=== PATIENT | male | born 1950 | race Caucasian/White ===

== ENCOUNTER 2017-06-20 06:55 | Day surgery (SDC) | payer MEDICARE ==
[2017-06-19 08:51] VITALS: BMI 25.8
[2017-06-20] MEDS ORDERED: PROPOFOL 20 ML ONE ×3 (07:29)
[2017-06-20] MEDS ORDERED: LIDOCAINE HCL 2% (20ML MULTI-DOSE VIAL) NR ONE (07:39)
[2017-06-20] MEDS ORDERED: SUCCINYLCHOLINE CHLORIDE 200 MG/10 ML VIAL ONE (07:39)
[2017-06-20 08:55] VITALS: TEMP 98.2
[2017-06-20 09:28] VITALS: BP 115/60; PULSE 68
--- NOTE | 2017-06-23 15:32 | PATH ---
Surgical Pathology Report Patient Name: ALPHONSO NICKERSON [facility]. Rec. #: [id number] /Age/Gender: 1950 (Age: 67) / M Account: [id number] Location: U-ENDOSCOPY Taken: 06/20/2017 Received: 06/20/2017 Reported: 06/23/2017 Physicians: Flaquito Laureano M.D. Specimen(s) Received A: BX 2ND PORTION DUODENAL & BULB B: BX ANTRUM C: BX GE JUNCTION D: RIGHT COLON POLYP E: RECTAL POLYP Clinical History Preoperative diagnosis: Adenoma surveillance, family history of gastric cancer Postoperative diagnosis: GERD, mild gastritis, right colon and rectal polyp, diverticulosis Final Diagnosis A. DUODENUM, SECOND PORTION AND BULB , BIOPSY: DUODENAL MUCOSA WITHOUT SIGNIFICANT PATHOLOGIC FINDINGS. B. STOMACH, ANTRUM, BIOPSY: GASTRIC ANTRAL MUCOSA WITH MILD CHRONIC GASTRITIS. IMMUNOHISTOCHEMICAL STAIN FOR H. PYLORI IS NEGATIVE. C. GASTROESOPHAGEAL (GE) JUNCTION, BIOPSY: SQUAMOUS MUCOSA WITH MILD REFLUX ESOPHAGITIS. NO COLUMNAR COMPONENT IDENTIFIED. D. COLON, RIGHT, POLYP, BIOPSY: TUBULAR ADENOMA. E. RECTUM, POLYP, BIOPSY: TUBULAR ADENOMA. Electronically Signed Didi Bennett M.D. Gross Description A. Received in formalin, labeled "biopsy second portion of duodenum and bulb" are 3 hewitt, irregular portions of soft tissue averaging 0.3 cm. in greatest dimension. The specimens are submitted in toto in one cassette. B. Received in formalin, labeled "biopsy antrum" are 4 hewitt, irregular portions of soft tissue ranging from 0.2-0.4 cm. in greatest dimension. The specimens are submitted in toto in one cassette. C. Received in formalin, labeled "biopsy GE junction" are 2 hewitt, irregular portions of soft tissue averaging 0.4 cm. in greatest dimension. The specimens are submitted in toto in one cassette. D. Received in formalin, labeled "biopsy right colon polyp" are 2 hewitt, irregular portions of soft tissue averaging 0.2 cm. in greatest dimension. The specimens are submitted in toto in one cassette. E. Received in formalin, labeled "rectal polyp" are 2 hewitt, irregular portions of soft tissue averaging 0.3 cm. in greatest dimension. The specimens are submitted in toto in one cassette. 06/20/2017 saudi06/20/2017
== END 2017-06-20 09:46 | disposition home or self-care (01) ==
LOC: JASU-ENDO 06:55
PROVIDERS: ATTEND Internal Medicine Gastroenterology
PROC: 0DBP8ZX Excision of Rectum, Via Natural or Artificial Opening Endoscopic, Diagnostic (ICD-10-PCS; 2017-06-20)
PROC: 0DB98ZX Excision of Duodenum, Via Natural or Artificial Opening Endoscopic, Diagnostic (ICD-10-PCS; 2017-06-20)
PROC: 0DB68ZX Excision of Stomach, Via Natural or Artificial Opening Endoscopic, Diagnostic (ICD-10-PCS; 2017-06-20)
PROC: 0DB38ZX Excision of Lower Esophagus, Via Natural or Artificial Opening Endoscopic, Diagnostic (ICD-10-PCS; 2017-06-20)
PROC: 0DB48ZX Excision of Esophagogastric Junction, Via Natural or Artificial Opening Endoscopic, Diagnostic (ICD-10-PCS; 2017-06-20)
PROC: 0DBK8ZX Excision of Ascending Colon, Via Natural or Artificial Opening Endoscopic, Diagnostic (ICD-10-PCS; principal; 2017-06-20 08:00)
DX: Z86.010 Personal history of colon polyps (principal); Z80.0 Family history of malignant neoplasm of digestive organs; D12.2 Benign neoplasm of ascending colon; K62.1 Rectal polyp; K57.30 Diverticulosis of large intestine without perforation or abscess without bleeding; K21.0 Gastro-esophageal reflux disease with esophagitis; K44.9 Diaphragmatic hernia without obstruction or gangrene; K25.9 Gastric ulcer, unspecified as acute or chronic, without hemorrhage or perforation
CPT/HCPCS: 88305-TC; 88342-TC

== ENCOUNTER 2019-03-04 07:32 | Day surgery (SDC) | payer OTHER, MEDICARE ==
[2019-03-03 11:30] VITALS: BMI 25.0
[2019-03-04] MEDS ORDERED: MIDAZOLAM HCL 2 MG/2 ML SINGLE DOSE VIAL ONE (08:30)
[2019-03-04] MEDS ORDERED: SUCCINYLCHOLINE CHLORIDE 200 MG/10 ML SYRINGE ONE (08:30)
[2019-03-04] MEDS ORDERED: PROPOFOL 20 ML ONE (08:30)
[2019-03-04] MEDS ORDERED: AMPICILLIN NA/SULBACTAM NA 1.5 GM VIAL ONE (09:14)
[2019-03-04] MEDS ORDERED: AMPICILLIN NA/SULBACTAM NA 1.5 GM VIAL IVPB ONE (09:14)
[2019-03-04] MEDS ORDERED: AMPICILLIN NA/SULBACTAM NA 1.5 GM/100 ML PRE-DOCKED IVPB ONE (09:15)
[2019-03-04] MEDS ORDERED: IOHEXOL 300 MG/ML INFUS..BTL IJ ONE (09:25)
[2019-03-04] MEDS ORDERED: DESFLURANE GAS 240 ML BOTTLE IH ONE (10:21)
[2019-03-04] MEDS ORDERED: oxyCODONE HCL 5 MG TABLET PO PRN (10:41)
--- NOTE | 2019-03-04 10:44 | OP ---
Operative Note - Note: Operative Date: 03/04/19 Pre-Operative Diagnosis: urethral stricture/bladder stone/RT ureteral stone Operation: cysto/dilation/laser litho/ureteroscopy/stent Post-Operative Diagnosis: Same as Pre-op Surgeon: Lorenzo Zimmerman Anesthesia: General Specimens Removed: stones Estimated Blood Loss (mls): 5 Drains & Tubes with Location: 7fr, 24cm stent Operative Report Dictated: Yes
[2019-03-04] MEDS ORDERED: ELECTROLYTE-148 SOLN 1,000 ML IV SCH (10:45)
[2019-03-04] MEDS ORDERED: ACETAMINOPHEN INJECTION 100 ML IVPB ONE (10:58)
[2019-03-04] MEDS ORDERED: ACETAMINOPHEN 1000 MG/100 ML VIAL (NON FORMULARY) IVPB ONE ×2 (11:15→12:15)
[2019-03-04] MEDS ORDERED: ONDANSETRON 4 MG/2 ML VIAL IVPUSH PRN (13:27)
[2019-03-04] MEDS ORDERED: LACTATED RINGERS SOLUTION 1,000 ML IV SCH (13:30)
--- NOTE | 2019-03-04 14:45 | OP ---
DATE OF OPERATION: 03/04/2019 PREOPERATIVE DIAGNOSES: Urethral stricture, bladder stone, and right ureteral stone. POSTOPERATIVE DIAGNOSES: Urethral stricture, bladder stone, and right ureteral stone. PROCEDURE: Cystoscopy, dilation of urethral stricture, laser lithotripsy of bladder stone, right ureteroscopy, laser lithotripsy of right distal ureteral stone, and ureteral stone basketing and stent placement. SURGEON: Guerline Wilson MD INDICATION: The patient is a 68-year-old male who, on workup for hematuria, was noted to have a urethral stricture as well as 8-mm bladder stone and a 1-cm right distal ureteral stone. He was taken to the OR for planned dilation of stricture and treatment of both stones, and stent placement. Patient in to OR, placed supine on the operating table, cardiac monitoring administered, general anesthesia established. He was prepped and draped in dorsal supine position. The flexible cystoscope was inserted into urethra. At the meatus and at the fossa navicularis, there was a stricture that extended from the fossa navicularis to a good portion of the pendulous urethra. A guidewire was advanced beyond this area and the stricture was dilated to 22-Guyanese with Constantia dilators. Cystoscopy now revealed the whole area of stricture to be stretched. The prostatic urethra was 3 cm and partially occlusive. The bladder was visualized. There was a large right-sided bladder diverticulum and there was a stone 8 mm in size noted in the bladder. Using the 365-micron laser fiber, that stone was pulverized to fine dust and several fragments and all these fragments were removed and sent to Pathology for analysis. Now with urethral stricture dilated and with the bladder stone treated, attention was turned to the right distal ureteral stone. A guidewire was advanced into the right ureteral orifice into the right renal pelvis under fluoroscopic vision. Alongside the guidewire, a semirigid scope was advanced into the distal ureter, where a 1-cm stone was seen. Using the 365-micron laser fiber, the stone was pulverized to fine dust and several fragments and these fragments were removed with the stone basket and sent to pathology for analysis. Repeat ureteroscopy revealed no evidence of any other residual stone fragments. Ureteroscope was then removed. A 7-Guyanese 24-cm double pigtail stent was then advanced in a monorail fashion. Fluoroscopy confirmed the stent to be in good position. There was pull-string left on the stent, and then a Councill-tip catheter placed into the bladder over the remaining guidewire. Of note, the stricture in the urethra was fairly dense; however, dilated without difficulty, and there was no evidence of any foreign body in urethra. GUERLINE WILSON M.D. LOLIS/[id number]
[2019-03-04 16:48] VITALS: BP 120/70
[2019-03-04 16:58] VITALS: PULSE 70; TEMP 97.8
--- NOTE | 2019-03-09 18:06 | PATH ---
Surgical Pathology Report Patient Name: ALPHONSO NICKERSON Med. Rec. #: [id number] /Age/Gender: 1950 (Age: 68) / M Account: [id number] Location: [facility] SURGICAL Taken: 03/04/2019 Received: 03/04/2019 Reported: 03/09/2019 Physicians: Lorenzo Zimmerman M.D. Specimen(s) Received BLADDER STONES Clinical History Urethral stricture, bladder stone, right renal stone Final Diagnosis BLADDER STONES, REMOVAL: CONSISTENT WITH BLADDER CALCULI. SENT FOR CHEMICAL ANALYSIS. Electronically Signed Xuan Jennings M.D. Microscopic Description Bladder stones right renal stone Gross Description Received in a container, labeled "bladder stones" are multiple of brown calculi measuring 0.6 x 0.6 x 0.3 cm in aggregate. The specimen is sent to chemical analysis.
[2019-03-11 17:06] LABS: CA OXALATE MONOHYDR. 93 % (.); WEIGHT 173.8 mg (.)
== END 2019-03-04 17:00 | disposition home or self-care (01) ==
LOC: JASU-SURG 07:32
PROVIDERS: ATTEND Urology
PROC: 0TCB8ZZ Extirpation of Matter from Bladder, Via Natural or Artificial Opening Endoscopic (ICD-10-PCS; principal; 2019-03-04 09:00)
PROC: 0TF68ZZ Fragmentation in Right Ureter, Via Natural or Artificial Opening Endoscopic (ICD-10-PCS; 2019-03-04 09:00)
PROC: 0T768DZ Dilation of Right Ureter with Intraluminal Device, Via Natural or Artificial Opening Endoscopic (ICD-10-PCS; 2019-03-04 09:00)
PROC: 0T768ZZ Dilation of Right Ureter, Via Natural or Artificial Opening Endoscopic (ICD-10-PCS; 2019-03-04 09:00)
DX: N35.819 Other urethral stricture, male, unspecified site (principal); N21.0 Calculus in bladder; N20.1 Calculus of ureter
CPT/HCPCS: 36415; 76000-TC-FY; 82360; 88300-TC; J0131

== ENCOUNTER 2021-07-23 16:10 | Emergency (ER) | payer OTHER, MEDICARE ==
[2021-07-23 16:45] VITALS: BP 145/78; PULSE 100; TEMP 98.9; BMI 27.1
== END 2021-07-23 17:25 | disposition home or self-care (01) ==
LOC: FER 16:10
DX: K64.9 Unspecified hemorrhoids (principal)
CPT/HCPCS: 99283-25